=== PATIENT | female | born 1935 | race Caucasian/White ===

== ENCOUNTER → 2019-12-24 | Outpatient (CLI) | payer OTHER | END | disposition home or self-care (01) | LOC: US 14:30 | DX: I70.209 Unspecified atherosclerosis of native arteries of extremities, unspecified extremity (principal); S80.921D Unspecified superficial injury of right lower leg, subsequent encounter; S81.001D Unspecified open wound, right knee, subsequent encounter; X58.XXXD Exposure to other specified factors, subsequent encounter ==